=== PATIENT | female | born 1985 | race African-American/Black ===

== ENCOUNTER 2020-06-18 21:24 | Emergency (ER) | payer MEDICAID ==
[~2020-06-18] VITALS: Ht 167.6 cm; Wt 70.0 kg
[2020-06-18 21:45] VITALS: BP 132/90
== END 2020-06-19 02:24 | disposition home or self-care (01) ==
LOC: ER 21:24
DX: F41.9 Anxiety disorder, unspecified (principal); Z59.0 Homelessness; F20.9 Schizophrenia, unspecified
CPT/HCPCS: 93005; 99283